=== PATIENT | male | born 1935 | race Hispanic/Latino ===

== ENCOUNTER 2020-05-20 06:48 | Observation (INO) | payer MEDICARE ==
--- NOTE | 2020-05-20 07:49 | Emergency Department Report ---
ED Altered Mental Status HPI - General Chief Complaint: Altered Mental Status Stated Complaint: ALTERED MENTAL STATUS Time Seen by Provider: 05/20/20 07:37 Source: EMS Mode of arrival: Stretcher Limitations: Altered Mental Status - History of Present Illness Initial Comments: 84-year-old male with a past medical history of CHF, hypertension, and diabetes presents to the hospital with alteration in mental status. Patient is apparently admitted to [facility] for overdose attempt and depression. He was last seen normal at 2 AM here post and nursing station requesting medication for pain. He apparently was provided Tylenol. This m orning he was found in his current state. Patient is unable to speak but able to nod and gesture. Triage nurse initially thought patient had left-sided weakness upon command but patient is witnessing gesturing with his left hand when not prompted. EMS Accu-Chek 110. code stroke initiated after my evaluation. - Related Data Home Medications Medication Instructions Recorded Confirmed Last Taken Benzocaine/Menthol [Sore Throat 1 each MM ONCE PRN 05/20/20 05/20/20 Unknown Lozenges] Insulin Regular, Human [Novolin R] 1 units IJ QHS 05/20/20 05/20/20 Unknown Isosorbide Dinitrate 30 mg PO BID 05/20/20 05/20/20 Unknown LORazepam [Lorazepam] 0.5 mg PO PRN PRN 05/20/20 05/20/20 Unknown Magnesium, Aluminum Hydroxide 30 ml PO ONCE PRN 05/20/20 05/20/20 Unknown [Mag-Al Liquid] Mupirocin [Bactroban 2%] 1 applic TP TID 05/20/20 05/20/20 Unknown Promethazine [Phenergan] 25 mg PO Q6HR PRN 05/20/20 05/20/20 Unknown Sertraline [Zoloft] 25 mg PO QDAY 05/20/20 05/20/20 Unknown Tamsulosin [Flomax] 0.4 mg PO QDAY 05/20/20 05/20/20 Unknown cloNIDine [Catapres] 0.1 mg PO DAILY 05/20/20 05/20/20 Unknown diphenhydrAMINE [Benadryl CAP] 25 mg PO Q8HR PRN 05/20/20 05/20/20 Unknown glyBURIDE [Diabeta] 5 mg PO BID 05/20/20 05/20/20 Unknown hydrOXYzine PAMOATE [Vistaril] 25 mg PO Q6HR PRN 05/20/20 05/20/20 Unknown traZODone [Desyrel] 25 mg PO QHS 05/20/20 05/20/20 Unknown Allergies Allergy/AdvReac Type Severity Reaction Status Date / Time aspirin AdvReac Unknown Verified 05/20/20 08:11 clopidogrel AdvReac Unknown Verified 05/20/20 08:11 codeine AdvReac Unknown Verified 05/20/20 08:11 doxycycline AdvReac Unknown Verified 05/20/20 08:11 hydrocodone AdvReac Unknown Verified 05/20/20 08:11 iodine AdvReac Unknown Verified 05/20/20 08:11 Penicillins AdvReac Unknown Verified 05/20/20 08:11 povidone-iodine AdvReac Unknown Verified 05/20/20 08:11 ticagrelor AdvReac Unknown Verified 05/20/20 08:11 ED Review of Systems ROS: Stated complaint: ALTERED MENTAL STATUS Other details as noted in HPI Comment: Unobtainable due to pts medical conditions ED Past Medical Hx - Social History Smoking Status: Unknown if ever smoked Substance Use Type: None - Medications Home Medications: Home Medications Medication Instructions Recorded Confirmed Last Taken Type Benzocaine/Menthol [Sore Throat 1 each MM ONCE PRN 05/20/20 05/20/20 Unknown History Lozenges] Insulin Regular, Human [Novolin R] 1 units IJ QHS 05/20/20 05/20/20 Unknown History Isosorbide Dinitrate 30 mg PO BID 05/20/20 05/20/20 Unknown History LORazepam [Lorazepam] 0.5 mg PO PRN PRN 05/20/20 05/20/20 Unknown History Magnesium, Aluminum Hydroxide 30 ml PO ONCE PRN 05/20/20 05/20/20 Unknown History [Mag-Al Liquid] Mupirocin [Bactroban 2%] 1 applic TP TID 05/20/20 05/20/20 Unknown History Promethazine [Phenergan] 25 mg PO Q6HR PRN 05/20/20 05/20/20 Unknown History Sertraline [Zoloft] 25 mg PO QDAY 05/20/20 05/20/20 Unknown History Tamsulosin [Flomax] 0.4 mg PO QDAY 05/20/20 05/20/20 Unknown History cloNIDine [Catapres] 0.1 mg PO DAILY 05/20/20 05/20/20 Unknown History diphenhydrAMINE [Benadryl CAP] 25 mg PO Q8HR PRN 05/20/20 05/20/20 Unknown History glyBURIDE [Diabeta] 5 mg PO BID 05/20/20 05/20/20 Unknown History hydrOXYzine PAMOATE [Vistaril] 25 mg PO Q6HR PRN 05/20/20 05/20/20 Unknown History traZODone [Desyrel] 25 mg PO QHS 05/20/20 05/20/20 Unknown History ED Physical Exam - General Limitations: Altered Mental Status - Other Other exam information: General: No acute distress Head: Atraumatic Eyes: normal appearance ENT: Moist mucous membranes Neck: Normal appearance, no midline tenderness Chest: Clear to auscultation bilaterally CV: Tachycardic regular rhythm, positive murmur Abdomen: Soft, normal bowel sounds, nontender, nondistended, no rebound or guarding Back: Normal inspection Extremity: Normal inspection, full range of motion Neuro: Awake Psych: Appropriate behavior Skin: No rash ED Course Vital Signs 05/20/20 05/20/20 05/20/20 07:20 07:25 08:20 Temperature 98.9 F 98.9 F Pulse Rate 119 H 114 H 101 H Respiratory 19 19 17 Rate Blood Pressure 219/106 Blood Pressure 197/94 197/96 [Left] O2 Sat by Pulse 97 97 98 Oximetry 05/20/20 05/20/20 05/20/20 09:15 10:15 11:30 Temperature Pulse Rate 119 H 115 H Respiratory 17 14 Rate Blood Pressure 179/86 158/84 177/88 Blood Pressure [Left] O2 Sat by Pulse 96 96 96 Oximetry 05/20/20 05/20/20 05/20/20 12:15 13:15 14:00 Temperature Pulse Rate Respiratory Rate Blood Pressure 179/81 167/91 184/91 Blood Pressure [Left] O2 Sat by Pulse 96 96 96 Oximetry - Reevaluation(s) Reevaluation #1: 05/20/20 08:58 Patient now is alert with stuttering speech and mild bilateral tremors but no focal weakness. Patient is on a 1013 from [place] for suicidal attempt via overdose. Patient is now not agreeing to have IV placed. Family is having a lot of holiness associations/delusions. Patient is refusing IV which is required admission. Reevaluation #2: 05/20/20 09:00 Upon reexamination patient is alert and oriented to year. When asked what place he is he states he is on [place]. Patient does not have any focal deficits and has 5/5 upper lower extremity strength with intact [id number] function, grossly intact sensation, mild tremor noted. No facial droop. Extraocular was intact with stuttering speech 05/20/20 09:19 PATIENT REFUSES ED TREATMENT INCLUDING IV AND IM MEDS. JORDYN WELCH STATES ADMINISTERING MEDS AGAINST PT'S WILL IS ASSAULT EVEN IF THE PT IS A 1013 EVEN IF PT CAME IN CATATONIC DUE TO SEVERE DEPRESSION WITH RECENT SUICIDE ATTEMPT. RISK MANAGEMENT HAS BEEN CONSULTED. ADMISSION ORDERS PLACED. - Lab Data Result diagrams: 05/20/20 07:56 05/20/20 07:56 Lab Results 05/20/20 05/20/20 05/20/20 Range/Units 07:56 07:56 07:56 WBC 5.4 (4.5-11.0) K/mm3 RBC 4.73 (3.65-5.03) M/mm3 Hgb 13.0 (11.8-15.2) gm/dl Hct 39.4 (35.5-45.6) % MCV 83 L (84-94) fl MCH 27 L (28-32) pg MCHC 33 (32-34) % RDW 17.0 H (13.2-15.2) % Plt Count 193 (140-440) K/mm3 Lymph % (Auto) 27.0 (13.4-35.0) % [facility] % (Auto) 6.3 (0.0-7.3) % Eos % (Auto) 4.5 H (0.0-4.3) % Baso % (Auto) 0.4 (0.0-1.8) % Lymph # 1.5 (1.2-5.4) K/mm3 [facility] # 0.3 (0.0-0.8) K/mm3 Eos # 0.2 (0.0-0.4) K/mm3 Baso # 0.0 (0.0-0.1) K/mm3 Seg Neutrophils % 61.8 (40.0-70.0) % Seg Neutrophils # 3.4 (1.8-7.7) K/mm3 Sodium 137 (137-145) mmol/L Potassium 3.8 (3.6-5.0) mmol/L Chloride 103.4 (98-107) mmol/L Carbon Dioxide 17 L (22-30) mmol/L Anion Gap 20 mmol/L BUN 16 (9-20) mg/dL Creatinine 0.7 L (0.8-1.3) mg/dL Estimated GFR > 60 ml/min BUN/Creatinine Ratio 23 % Glucose 147 H (75-100) mg/dL Calcium 9.5 (8.4-10.2) mg/dL Magnesium 2.00 (1.7-2.3) mg/dL Total Bilirubin 0.50 (0.1-1.2) mg/dL AST 31 (5-40) units/L ALT 22 (7-56) units/L Alkaline Phosphatase 86 (35-129) units/L Total Creatine Kinase 88 (55-170) units/L CK-MB (CK-2) 2.2 (0.0-4.0) ng/mL CK-MB (CK-2) Rel Index 2.5 (0-4) Troponin T < 0.010 (0.00-0.029) ng/mL Total Protein 8.2 (6.3-8.2) g/dL Albumin 3.8 L (3.9-5) g/dL Albumin/Globulin Ratio 0.9 % TSH (0.270-4.200) mlU/mL Free T4 (0.76-1.46) ng/dL Plasma/Serum Alcohol < 0.01 (0-0.07) % 05/20/20 Range/Units 07:56 WBC (4.5-11.0) K/mm3 RBC (3.65-5.03) M/mm3 Hgb (11.8-15.2) gm/dl Hct (35.5-45.6) % MCV (84-94) fl MCH (28-32) pg MCHC (32-34) % RDW (13.2-15.2) % Plt Count (140-440) K/mm3 Lymph % (Auto) (13.4-35.0) % [facility] [place] % (Auto) (0.0-7.3) % Eos % (Auto) (0.0-4.3) % Baso % (Auto) (0.0-1.8) % Lymph # (1.2-5.4) K/mm3 [facility] # (0.0-0.8) K/mm3 Eos # (0.0-0.4) K/mm3 Baso # (0.0-0.1) K/mm3 Seg Neutrophils % (40.0-70.0) % Seg Neutrophils # (1.8-7.7) K/mm3 Sodium (137-145) mmol/L Potassium (3.6-5.0) mmol/L Chloride (98-107) mmol/L Carbon Dioxide (22-30) mmol/L Anion Gap mmol/L BUN (9-20) mg/dL Creatinine (0.8-1.3) mg/dL Estimated GFR ml/min BUN/Creatinine Ratio % Glucose (75-100) mg/dL Calcium (8.4-10.2) mg/dL Magnesium (1.7-2.3) mg/dL Total Bilirubin (0.1-1.2) mg/dL AST (5-40) units/L ALT (7-56) units/L Alkaline Phosphatase (35-129) units/L Total Creatine Kinase (55-170) units/L CK-MB (CK-2) (0.0-4.0) ng/mL CK-MB (CK-2) Rel Index (0-4) Troponin T (0.00-0.029) ng/mL Total Protein (6.3-8.2) g/dL Albumin (3.9-5) g/dL Albumin/Globulin Ratio % TSH 0.390 (0.270-4.200) mlU/mL Free T4 1.28 (0.76-1.46) ng/dL Plasma/Serum Alcohol (0-0.07) % - Radiology Data Radiology results: report reviewed NONENHANCED CT SCAN OF THE BRAIN: INDICATION: Stroke symptoms. Change in mental status; last known well time 0200 hours on TECHNIQUE: Routine CT head without contrast. Sagittal and coronal reformatted images were obtained. All CT scans at this location are performed using CT dose reduction for ALARA by means of automated exposure control. COMPARISON: None. FINDINGS: BRAIN / INTRACRANIAL CONTENTS: Hemorrhage:No intracranial hemorrhage; no subarachnoid hemorrhage Stroke mimics: No subdural or epidural hematoma or space taking lesion Acute/subacute territorial infarction: Dejesus-white matter interface: No blurring; normal Insular cortex: Normal Basal ganglia: Normal Wedge shaped parenchymal low density area: Not present Cortical sulci: Not effaced Lacunar infarctions: None Vasculopathy: Dense middle cerebral artery sign: Not present Internal carotid artery terminus: Normal Basilar artery:Normal Middle cerebral artery branches in the sylvian fissure (Dot sign): Normal Calcified embolus: Not present ASPECT score: 10 Chronic lesions: Extensive periventricular low-attenuation areas seen. In addition, focal white matter lesions. These lesions probably due to chronic small vessel disease. Craniocervical junction:No significant abnormality Orbits:No significant abnormality Paranasal sinuses/mastoids:No significant abnormality Additional findings: Vascular calcification in the carotid arteries at the level of IMPRESSION: No intracerebral hemorrhage No stroke mimics No CT findings to suggest acute/subacute territorial infarction - Medical Decision Making Patient presented with possible stroke symptoms. I have instructed patient's presentation is more psych related due to severe depression with associated holiness delusions. CT head unremarkable. Unable to perform CT Julia of head and negative due to iodine allergy. Neurology consult appreciated. Given multiple stroke risk factors patient will be admitted to the hospital for continuation of neurologic work-up to rule out neurologic cause of symptoms. Patient is currently on a 1013 however I am unable to chemically sedate patient at this time since patient refuses. Unable to adequately medically treat the patient at this time due to patient refusal. Risk management has been consulted and admission orders have been placed at this time. Critical Care Time: No Critical care attestation.: If time is entered above; I have spent that time in minutes in the direct care of this critically ill patient, excluding procedure time. ED Disposition Clinical Impression: CVA (cerebrovascular accident), Depression, Suicidal ideations, Uncontrolled hypertension, Catatonia Disposition: OP ADMIT IP TO THIS HOSP Is pt being admited?: Yes Condition: Stable Time of Disposition: 09:09 (Dr Gillis/hosp)
--- NOTE | 2020-05-20 08:11 | Emergency Department Report ---
ED Altered Mental Status [facility] - General Chief Complaint: Altered Mental Status Stated Complaint: ALTERED MENTAL STATUS Time Seen by Provider: 05/20/20 07:37 Source: EMS Mode of arrival: Stretcher Limitations: Altered Mental Status ED Review of Systems ROS: Stated complaint: ALTERED MENTAL STATUS Other details as noted in HPI [facility] Date of Service: 05/20/2020 07:44:15 Impression: Rule Out Acute Ischemic Stroke Comments/Sign-Out: The patient needs to have stat CT angiogram of the head and neck and CT perfusion studies to rule out large vessel occlusion. The patient is not an alteplase candidate because the last known normal was outside the window. If the advanced neuroimaging is negative for large vessel occlusion then he needs to be admitted for brain MRI, carotids and echo as part of stroke workup. Mechanism of Stroke: Not Clear Metrics: Last Known Well: 05/20/2020 02:00:00 [employer] Notification Time: 05/20/2020 07:43:59 Arrival Time: 05/20/2020 07:00:00 Stamp Time: 05/20/2020 07:44:15 Time First Login Attempt: 05/20/2020 07:47:23 Video Start Time: 05/20/2020 07:47:23 Symptoms: left and then right sided weakness , aphasia NIHSS Start Assessment Time: 05/20/2020 07:55:33 Patient is not a candidate for Alteplase/Activase. Patient was not deemed candidate for Alteplase/Activase thrombolytics because of Last Well Known Above 4.5 Hours. Video End Time: 05/20/2020 08:01:19 CT head showed no acute hemorrhage or acute core infarct. Lower Likelihood of Large Vessel Occlusion but Following Stat Studies are Recommended CTA Head and Neck. CT Perfusion. ED Physician notified of diagnostic impression and management plan on 05/20/2020 08:01:20 Our recommendations are outlined below. Recommendations: Activate Stroke Protocol Admission/Order Set Stroke/Telemetry Floor Neuro Checks Bedside Swallow Eval DVT Prophylaxis IV Fluids, Normal Saline Head of Bed 30 Degrees Euglycemia and Avoid Hyperthermia (PRN Acetaminophen) Antiplatelet Therapy Recommended Sign Out: Discussed with Emergency Department Provider History of Present Illness: Patient is a 84 year old Male. Patient was brought by EMS for symptoms of left and then right sided weakness , aphasia 84 year old male from a mental health facility came in with altered awareness , aphasia and left sided weakness. He was admitted to the mental health facility Recently for drug overdose on 05/15/20. His other past medical history includes hypertension, diabetes, CHF and he is not on any antiplatelets on anticoagulant agents. He was last known normal at about 2 o'clock in the morning winning when she is the nurses station at the facility and asked for pain medications and got Tylenol. When they went to check on him this morning he was noted to have altered Mental status, aphasia and left-sided weakness. He was brought to the hospital by EMS for further evaluation. The patient is able to mouth the sentences but no words are coming. He is now exhibiting right-sided weakness. There is no facial asymmetry. Both his legs are weak. His CAT scan is negative for bleed. I will suggest stat CT angiogram and perfusion studies to rule out large vessel occlusion. Last seen normal was beyond 4.5 hours of presentation. There is no history of hemorrhagic complications or intracranial hemorrhage. There is no history of Recent Anticoagulants. There is no history of recent major surgery. There is no history of recent stroke. Past Medical History: Hypertension Diabetes Mellitus Anticoagulant use: No Antiplatelet use: No Examination: 1A: Level of Consciousness - Alert; keenly responsive + 0 1B: Ask Month and Age - Aphasic + 2 1C: Blink Eyes & Squeeze Hands - Performs 1 Task + 1 2: Test Horizontal Extraocular Movements - Normal + 0 3: Test Visual Doty - No Visual Loss + 0 4: Test Facial Palsy (Use Grimace if Obtunded) - Normal symmetry + 0 5A: Test Left Arm Motor Drift - No Drift for 10 Seconds + 0 5B: Test Right Arm Motor Drift - No Movement + 4 6A: Test Left Leg Motor Drift - No Movement + 4 6B: Test Right Leg Motor Drift - No Movement + 4 7: Test Limb Ataxia (FNF/Heel-Kearns) - No Ataxia + 0 8: Test Sensation - Normal; No sensory loss + 0 9: Test Language/Aphasia - Mute/Global Aphasia: No Usable Speech/Auditory Comprehension + 3 10: Test Dysarthria - Normal + 0 11: Test Extinction/Inattention - No abnormality + 0 NIHSS Score: 18 Patient/Family was informed the Neurology Consult would happen via TeleHealth consult by way of interactive audio and video telecommunications and consented to receiving care in this manner. Due to the immediate potential for life-threatening deterioration due to underlying acute neurologic illness, I spent 35 minutes providing critical care. This time includes time for face to face visit via telemedicine, review of medical records, imaging studies and discussion of findings with providers, the patient and/or family. Dr Misti Barros [employer] Case [id number] ED Past Medical Hx - Past Medical History Previous Medical History?: Yes Hx Hypertension: Yes Hx Congestive Heart Failure: Yes Hx Dementia: Yes - Social History Smoking Status: Unknown if ever smoked Substance Use Type: None ED Physical Exam - General Limitations: Altered Mental Status ED Course Vital Signs 05/20/20 05/20/20 07:20 07:25 Temperature 98.9 F 98.9 F Pulse Rate 119 H 114 H Respiratory 19 19 Rate Blood Pressure 219/106 Blood Pressure 197/94 [Left] O2 Sat by Pulse 97 97 Oximetry Critical care attestation.: If time is entered above; I have spent that time in minutes in the direct care of this critically ill patient, excluding procedure time. ED Disposition Clinical Impression: CVA (cerebrovascular accident) Disposition: [id number] OP ADMIT IP TO THIS HOSP Is pt being admited?: Yes Does the pt Need Aspirin: Yes Condition: Stable
--- NOTE | 2020-05-20 08:18 | Cat Scan Report ---
NONENHANCED CT SCAN OF THE BRAIN: INDICATION: Stroke symptoms. Change in mental status; last known well time 0200 hours on 05/19/2020 TECHNIQUE: Routine CT head without contrast. Sagittal and coronal reformatted images were obtained. A ll CT scans at this location are performed using CT dose reduction for ALARA by means of automated ex posure control. COMPARISON: None. FINDINGS: BRAIN / INTRACRANIAL CONTENTS: Hemorrhage:No intracranial hemorrhage; no subarachnoid hemorrhage Stroke mimics: No subdural or epidural hematoma or space taking lesion Acute/subacute territorial infarction: Dejesus-white matter interface: No blurring; normal Insular cortex: Normal Basal ganglia: Normal Wedge shaped parenchymal low density area: Not present Cortical sulci: Not effaced Lacunar infarctions: None Vasculopathy: Dense middle cerebral artery sign: Not present Internal carotid artery terminus: Normal Basilar artery:Normal Middle cerebral artery branches in the sylvian fissure (Dot sign): Normal Calcified embolus: Not present ASPECT score: 10 Chronic lesions: Extensive periventricular low-attenuation areas seen. In addition, focal white matte r lesions. These lesions probably due to chronic small vessel disease. Craniocervical junction:No significant abnormality Orbits:No significant abnormality Paranasal sinuses/mastoids:No significant abnormality Additional findings: Vascular calcification in the carotid arteries at the level of IMPRESSION: No intracerebral hemorrhage No stroke mimics No CT findings to suggest acute/subacute territorial infarction This exam was performed as part of a code stroke protocol. The exam was completed at [facility] on 05/20/2020 7:09 AM. The exam was reviewed at 7:13 AM Central daylight saving time and ER physician was notified at 7:14 AM. Signer Name: Javier Lama MD Signed: 05/20/2020 8:14 AM Workstation Name: [id number]
[2020-05-20 08:20] LABS: Basophils % (Auto) 0.4 % (0.0-1.8); Eosinophils # (Auto) 0.2 K/mm3 (0.0-0.4); Eosinophils % (Auto) 4.5 % (0.0-4.3); Hematocrit 39.4 % (35.5-45.6); Lymphocytes # (Auto) 1.5 K/mm3 (1.2-5.4); Mean Corpuscular HGB Conc 33 % (32-34); Mean Corpuscular Volume 83 fl (84-94); Monocytes # (Auto) 0.3 K/mm3 (0.0-0.8); Monocytes % (Auto) 6.3 % (0.0-7.3); Platelet Count 193 K/mm3 (140-440); Red Blood Count 4.73 M/mm3 (3.65-5.03)
--- NOTE | 2020-05-20 08:27 | XRay Report ---
CHEST 1 VIEW INDICATION: alteration in mental status. COMPARISON: None FINDINGS: Support devices: None. Heart: Within normal limits. Lungs/Pleura: No acute air space or interstitial disease. Additional findings: None. IMPRESSION: No acute findings. Signer Name: Raj Villalobos Jr, MD Signed: 05/20/2020 8:23 AM Workstation Name: [id number]
[2020-05-20 08:48] LABS: Alanine Aminotransferase 22 units/L (7-56); Albumin 3.8 g/dL (3.9-5); BUN/Creatinine Ratio 23; Blood Urea Nitrogen 16 mg/dL (9-20); Calcium 9.5 mg/dL (8.4-10.2); Creatine Kinase MB 2.2 ng/mL (0.0-4.0); Hemolysis Index 43
[2020-05-20 08:54] LABS: Free T4 (Free Thyroxine) 1.28 ng/dL (0.76-1.46)
[2020-05-20] MEDS ORDERED: ZIPRASIDONE MESYLATE 20 MG VIAL IM ONE (09:00)
[2020-05-20] MEDS ORDERED: LORazepam 2 MG/ML VIAL IM ONE (09:00)
--- NOTE | 2020-05-20 12:57 | History and Physical Report ---
History of Present Illness Date of examination: 05/20/20 Date of admission: 05/20/20 09:14 Chief complaint: Altered mental status History of present illness: Patient 84-year-old male with comorbid illness of congestive heart failure and secondary diagnoses of hypertension diabetes and dementia. Patient had an apparent attempt at suicide from overdose on antidepressant medications. Patient apparently was being worked up at mental health facility and had an epis ode of becoming nonverbal. Upon presentation here patient is alert oriented able to answer all questions. It appears that patient just did not speak and did not want to speak secondary to psychiatric issues. Initial presentation patient did not speak to me as well. After I spoke with him about life situations and his time is he grew up patient opened up and started talking to me about hoahaoism his parents his father his times in [place]. [facility] Patient lifted both arms and pray with me in [id number]. Patient stated he still feels down and wants to go home and pass in [place]. He feels the Lord is calling him home now. Stated he has been h ere on earth long enough and he is ready to see the Lord now. I did reach out to Mr. Tarun Dykes was the point of contact and left a message. No answer at this time. I also explained to the patient that he was dehydrated and anxious and required IV fluids. Patient still refused any IV fluids at any point of care at this particular time. Stated that he would drink fluids when he is ready. Explained to patient that his blood pressure was high and his pulse was high and he was anxious and would benefit from taking his blood pressure medications and receiving IV fluids. Past History Past Medical History: heart failure, hypertension Past Surgical History: No surgical history Social history: single, lives with family, other (Could not address DNR status.). denies: smoking, alcohol abuse, IV drug use Family history: other (Unknown at this time.) Medications and Allergies Allergies Allergy/AdvReac Type Severity Reaction Status Date / Time aspirin AdvReac Unknown Verified 05/20/20 08:11 clopidogrel AdvReac Unknown Verified 05/20/20 08:11 codeine AdvReac Unknown Verified 05/20/20 08:11 doxycycline AdvReac Unknown Verified 05/20/20 08:11 hydrocodone AdvReac Unknown Verified 05/20/20 08:11 iodine AdvReac Unknown Verified 05/20/20 08:11 Penicillins AdvReac Unknown Verified 05/20/20 08:11 povidone-iodine AdvReac Unknown Verified 05/20/20 08:11 ticagrelor AdvReac Unknown Verified 05/20/20 08:11 Home Medications Medication Instructions Recorded Confirmed Last Taken Type Benzocaine/Menthol [Sore Throat 1 each MM ONCE PRN 05/20/20 05/20/20 Unknown History Lozenges] Insulin Regular, Human [Novolin R] 1 units IJ QHS 05/20/20 05/20/20 Unknown History Isosorbide Dinitrate 30 mg PO BID 05/20/20 05/20/20 Unknown History LORazepam [Lorazepam] 0.5 mg PO PRN PRN 05/20/20 05/20/20 Unknown History Magnesium, Aluminum Hydroxide 30 ml PO ONCE PRN 05/20/20 05/20/20 Unknown History [Mag-Al Liquid] Mupirocin [Bactroban 2%] 1 applic TP TID 05/20/20 05/20/20 Unknown History Promethazine [Phenergan] 25 mg PO Q6HR PRN 05/20/20 05/20/20 Unknown History Sertraline [Zoloft] 25 mg PO QDAY 05/20/20 05/20/20 Unknown History Tamsulosin [Flomax] 0.4 mg PO QDAY 05/20/20 05/20/20 Unknown History cloNIDine [Catapres] 0.1 mg PO DAILY 05/20/20 05/20/20 Unknown History diphenhydrAMINE [Benadryl CAP] 25 mg PO Q8HR PRN 05/20/20 05/20/20 Unknown Hist ory glyBURIDE [Diabeta] 5 mg PO BID 05/20/20 05/20/20 Unknown History hydrOXYzine PAMOATE [Vistaril] 25 mg PO Q6HR PRN 05/20/20 05/20/20 Unknown History traZODone [Desyrel] 25 mg PO QHS 05/20/20 05/20/20 Unknown History Review of Systems Constitutional: fatigue, no weight loss, no weight gain, no fever, no chills, no sweats, no anorexia Ears, nose, mouth and throat: no ear pain, no tinnitis, no decreased hearing, no nose pain, no dental pain, no mouth pain, no sore throat Cardiovascular: no chest pain, no orthopnea, no palpitations, no rapid/irregular heart beat, no edema, no shortness of breath, no dyspnea on exertion Respiratory: no cough, no cough with sputum Gastrointestinal: no diarrhea, no constipation Genitourinary Male: no urinary hesitancy Musculoskeletal: no neck pain, no arm numbness/tingling, no muscle weakness, no muscle cramps, no prior amputations Neurological: no weakness, no tingling, no migraines, no aphasia, no confusion, no motor disturbance, no hearing difficulties (Patient mostly just shakes head no for everything at this time.) Exam - Constitutional Vitals: Temp Pulse Resp BP Pulse Ox 98.9 F 115 H 14 179/81 96 05/20/20 07:25 05/20/20 10:15 05/20/20 10:15 05/20/20 12:15 05/20/20 12:15 General appearance: Present: no acute distress, well-nourished - EENT Eyes: Present: PERRL ENT: hearing intact, clear oral mucosa - Neck Neck: Present: supple, normal ROM, other (Oral mucosa somewhat dry) - Respiratory Respiratory effort: normal Respiratory: bilateral: CTA - Cardiovascular Rhythm: other (Tachycardic) Heart Sounds: Present: S1 & S2. Absent: rub, click - Extremities Extremities: pulses symmetrical, No edema Peripheral Pulses: within normal limits - Abdominal General gastrointestinal: Present: soft, non-tender, non-distended, normal bowel sounds Male genitourinary: Present: normal - Rectal Rectal Exam: other (Skin tear left arm just below antecubital fossa) - Integumentary Integumentary: Present: clear, warm, dry - Musculoskeletal Musculoskeletal: gait normal, strength equal bilaterally - Psychiatric Psychiatric: appropriate mood/affect, intact judgment & insight, other (Some tremors with arm extension.) - Neurologic Neurologic: CNII-XII intact, moves all extremities HEART Score - HEART Score Troponin: Troponin T < 0.010 ng/mL (0.00-0.029) 05/20/20 07:56 Results - Labs CBC & Chem 7: 05/20/20 07:56 05/20/20 07:56 Labs: Laboratory Last Values WBC 5.4 K/mm3 (4.5-11.0) 05/20/20 07:56 RBC 4.73 M/mm3 (3.65-5.03) 05/20/20 07:56 Hgb 13.0 gm/dl (11.8-15.2) 05/20/20 07:56 Hct 39.4 % (35.5-45.6) 05/20/20 07:56 MCV 83 fl (84-94) L 05/20/20 07:56 MCH 27 pg (28-32) L 05/20/20 07:56 MCHC 33 % (32-34) 05/20/20 07:56 RDW 17.0 % (13.2-15.2) H 05/20/20 07:56 Plt Count 193 K/mm3 (140-440) 05/20/20 07:56 Lymph % (Auto) 27.0 % (13.4-35.0) 05/20/20 07:56 Garza % (Auto) 6.3 % (0.0-7.3) 05/20/20 07:56 Eos % (Auto) 4.5 % (0.0-4.3) H 05/20/20 07:56 Baso % (Auto) 0.4 % (0.0-1.8) 05/20/20 07:56 Lymph # 1.5 K/mm3 (1.2-5.4) 05/20/20 07:56 Garza # 0.3 K/mm3 (0.0-0.8) 05/20/20 07:56 Eos # 0.2 K/mm3 (0.0-0.4) 05/20/20 07:56 Baso # 0.0 K/mm3 (0.0-0.1) 05/20/20 07:56 Seg Neutrophils % 61.8 % (40.0-70.0) 05/20/20 07:56 Seg Neutrophils # 3.4 K/mm3 (1.8-7.7) 05/20/20 07:56 Sodium 137 mmol/L (137-145) 05/20/20 07:56 Potassium 3.8 mmol/L (3.6-5.0) 05/20/20 07:56 Chloride 103.4 mmol/L (98-107) 05/20/20 07:56 Carbon Dioxide 17 mmol/L (22-30) L 05/20/20 07:56 Anion Gap 20 mmol/L 05/20/20 07:56 BUN 16 mg/dL (9-20) 05/20/20 07:56 Creatinine 0.7 mg/dL (0.8-1.3) L 05/20/20 07:56 Estimated GFR > 60 ml/min 05/20/20 07:56 BUN/Creatinine Ratio 23 % 05/20/20 07:56 Glucose 147 mg/dL (75-100) H 05/20/20 07:56 Calcium 9.5 mg/dL (8.4-10.2) 05/20/20 07:56 Magnesium 2.00 mg/dL (1.7-2.3) 05/20/20 07:56 Total Bilirubin 0.50 mg/dL (0.1-1.2) 05/20/20 07:56 AST 31 units/L (5-40) 05/20/20 07:56 ALT 22 units/L (7-56) 05/20/20 07:56 Alkaline Phosphatase 86 units/L (35-129) 05/20/20 07:56 Total Creatine Kinase 88 units/L (55-170) 05/20/20 07:56 CK-MB (CK-2) 2.2 ng/mL (0.0-4.0) 05/20/20 07:56 CK-MB (CK-2) Rel Index 2.5 (0-4) 05/20/20 07:56 Troponin T < 0.010 ng/mL (0.00-0.029) 05/20/20 07:56 Total Protein 8.2 g/dL (6.3-8.2) 05/20/20 07:56 Albumin 3.8 g/dL (3.9-5) L 05/20/20 07:56 Albumin/Globulin Ratio 0.9 % 05/20/20 07:56 TSH 0.390 mlU/mL (0.270-4.200) 05/20/20 07:56 Free T4 1.28 ng/dL (0.76-1.46) 05/20/20 07:56 Plasma/Serum Alcohol < 0.01 % (0-0.07) 05/20/20 07:56 - Imaging and Cardiology CT Scan - head: image reviewed Assessment and Plan Advance Directives: No (Unable to appreciate secondary to dementia. Has not been able to contact f) VTE prophylaxis?: Chemical Plan of care discussed with patient/family: No - Patient Problems (1) Catatonia Current Visit: Yes Status: Acute Plan to address problem: CVA was ruled out. Patient also was no longer catatonic as explained in previous history and physical and also physical signs during physical exam. Appears to be more depression and dementia with mood disorder. (2) Depression Current Visit: Yes Status: Acute Plan to address problem: Patient does appear to be somewhat depressed with flat mood at times. It would become more upbeat when patient is able to talk about hoahaoism. Will await mental health recommendations. Not much really to add at this time patient was started on antidepressant. (3) Suicidal ideations Current Visit: Yes Status: Acute Plan to address problem: Mental health evaluation. Initiate antidepressant medication. Will most likely need inpatient if family decides to be more aggressive with his depression. (4) Uncontrolled hypertension Current Visit: Yes Status: Acute Plan to address problem: Uncontrolled hypertension patient continues to refuse medications. We will add a as needed hydralazine just in case patient will take a medicine IV without swallowing a pill. Patient continues to refuse care. (5) CVA (cerebrovascular accident) Current Visit: Yes Status: Acute Plan to address problem: Patient ruled out for CVA. Does not have any focal neurologic deficits. Patient does appear to have a declining cognition. At present he is alert able to speak about the past. No new immediate concerns. Would would not need MRI of further neurologic testing. (6) Dementia Current Visit: Yes Status: Acute Plan to address problem: Present appears to have dementia with mood disorder. I think treating patient's depression more aggressively may be the way to go. We will still need to speak with the family have not been able to get in touch with him at this point. Attempted to call Tarun Dykes x2. We will follow-up with additional conversation this evening.
[2020-05-20] MEDS ORDERED: ONDANSETRON 4 MG/2 ML INJ IV PRN (13:12)
[2020-05-20] MEDS ORDERED: ACETAMINOPHEN 325 MG TAB PO PRN (13:12)
[2020-05-20] MEDS ORDERED: HYDROcodone/ACETAMINOPHEN 5-325 MG TAB PO PRN (13:12)
[2020-05-20] MEDS ORDERED: LORazepam 0.5 MG TAB PO PRN (13:15)
[2020-05-20] MEDS ORDERED: hydrOXYzine PAMOATE 25 MG CAP PO PRN (13:15)
[2020-05-20] MEDS ORDERED: ISOSORBIDE DINITRATE 30 MG PO SCH (13:15)
[2020-05-20] MEDS ORDERED: PROMETHAZINE 25 MG TAB PO PRN (13:15)
[2020-05-20] MEDS ORDERED: hydrALAZINE 20 MG/1 ML INJ IV PRN (13:19)
[2020-05-20] MEDS ORDERED: cloNIDine 0.1 MG TAB PO SCH (14:00)
[2020-05-20] MEDS: MUPIROCIN 2% OINT 22 GM TP SCH ×2 (14:12→22:00)
[2020-05-20] MEDS: SERTRALINE 25 MG TAB PO SCH (14:13)
[2020-05-20 19:38] LABS: Bilirubin,Urine NEG (Negative); Blood,Urine SM (Negative); Color,Urine Straw (Yellow); RBC,Urine < 1.0 /HPF (0.0-6.0); Urobilinogen,Urine < 2.0 mg/dL (<2.0); WBC,Urine < 1.0 /HPF (0.0-6.0)
[2020-05-20 19:45] LABS: Amphetamine Screen,Urine PRESUMPTIVE NEGATIVE; Benzodiazepines Screen,Urine PRESUMPTIVE NEGATIVE; Cannabinoid Screen,Urine PRESUMPTIVE NEGATIVE; Cocaine Screen,Urine PRESUMPTIVE NEGATIVE; Methadone Screen,Urine PRESUMPTIVE NEGATIVE; Opiate Screen,Urine PRESUMPTIVE NEGATIVE
[2020-05-20] MEDS ORDERED: traZODone 50 MG TAB PO SCH (22:00)
[2020-05-20] MEDS: VALSARTAN 160MG TAB PO SCH (22:00)
[2020-05-20] MEDS: cloNIDine 0.2 MG TAB PO SCH (22:02)
[2020-05-20] MEDS: carvediloL 12.5 MG TAB PO SCH (22:02)
[2020-05-20] MEDS: ISOSORBIDE DINITRATE 10 MG TAB PO SCH (22:02)
[2020-05-20] MEDS: FAMOTIDINE 20 MG/2 ML INJ IV SCH (22:06)
[2020-05-20] MEDS ORDERED: FAMOTIDINE 20 MG/2 ML INJ IV ONE (22:06)
[2020-05-21 03:04] LABS: INR 0.98 (0.87-1.13)
[2020-05-21 03:05] LABS: Partial Thromboplastin Time 28.8 Sec. (24.2-36.6)
[2020-05-21 03:12] LABS: Blood Urea Nitrogen 13 mg/dL (9-20); Calcium 9.7 mg/dL (8.4-10.2); Hemolysis Index 43
[2020-05-21 03:31] LABS: BUN/Creatinine Ratio 19
[2020-05-21] MEDS: cloNIDine 0.2 MG TAB PO SCH ×2 (06:41→17:02)
[2020-05-21] MEDS ORDERED: TAMSULOSIN 0.4 MG CAP PO SCH (10:00)
[2020-05-21] MEDS ORDERED: ENOXAPARIN 40 MG/0.4 ML INJ SUB-Q SCH (10:00)
[2020-05-21] MEDS: VALSARTAN 160MG TAB PO SCH (11:46)
[2020-05-21] MEDS: ISOSORBIDE DINITRATE 10 MG TAB PO SCH (11:46)
[2020-05-21] MEDS: carvediloL 12.5 MG TAB PO SCH (11:46)
[2020-05-21] MEDS: FAMOTIDINE 20 MG/2 ML INJ IV SCH (11:47)
[2020-05-21] MEDS: SERTRALINE 25 MG TAB PO SCH (11:48)
--- NOTE | 2020-05-21 12:58 | Consultation ---
History of Present Illness - Reason for Consult Consult date: 05/21/20 Reason for consult: Depression, OD - History of Present Psychiatric Illness The patient's medical record was reviewed and the patient's progress was discussed with the nursing staff. The nurse note states I asked the patient if he would like for us to contact his nephew, he shook his head no, asked if he wanted up to let Tarun know his status he shook his head no, told him that he could speak with Tarun and he stated "I'd rather ." Nurse note also states the patient is refusing to eat. Kelechi Kelly is an 84y/o male who was admitted from [facility]. It is documented that the patient had a suicide attempt by overdose of psychiatric medications. During my interview with the patient is awake in bed. He is pleasantly confused. He is conversational. The patient is calm and cooperative. He describes his mood as "depressed." The patient states "I've been to several hospitals in the past two weeks." He then says, "the once before here was once with a bunch of craze people." When asking the patient why was he there, he states, "I messed around and said I would jump off the 4th floor. He says I was mad and knew that would make them listen." He denies being suicidal thoughts, but states, "I don't want to , but I'm going to . There is not a cure with what's wrong with me." He says "I got a deteriorated muscle in my heart." He then says, "I'm ready to see my family in [facility] anyway." The patient denies hallucinations of any kind. He states, "I talk to that man upstairs." The p atient denies any illicit drug use, alcohol, or nicotine. He could not recall any of his medications or psychiatric history. He says but he sees a psychiatrist "in [place]." PAST PSYCHIATRIC HISTORY Diagnoses: unable to recall Suicide attempts or Self-harm behavior: denies Prior psychiatric hospitalizations: Once Substance Abuse history: Denies Previous psychiatric medications tried: Unable to recall Outpatient treatment: Yes PAST MEDICAL HISTORY: Denies Family Psychiatric History: None reported or documented SOCIAL HISTORY Marital Status: Living Arrangements: with family Employment Status: Retired Access to guns/weapons: Denies Education: History of Abuse: none reported Legal History: none reported REVIEW OF SYSTEMS Constitutional: Negative for weight loss ENT: Negative for stridor Respiratory: Negative for cough or hemoptysis All other systems reviewed and are negative MENTAL STATUS EXAMINATION General Appearance: Dressed appropriately Behavior: Calm, cooperative, pleasant Mood: Depressed Affect and affective range: Congruent with stated mood Thought Process: Goal directed Thought Content: none Speech: Normal volume, Regular rate and rhythm Suicidal Ideation: Passive Homicidal Ideation: Denies Hallucinations: Denies Delusions: None elicited Insight and Judgment: Limited Memory/Cognition: Limited Attention: Normal Orientation: Alert, oriented Assessment Major Depressive Disorder PLAN Continue current medications Sitter: Defer to primary Medical: Per primary Disposition: Recommend acute inpatient psychiatric treatment. Will continue to follow. Thank you for this consult. Medications and Allergies Allergies Allergy/AdvReac Type Severity Reaction Status Date / Time aspirin AdvReac Unknown Verified 05/20/20 08:11 clopidogrel AdvReac Unknown Verified 05/20/20 08:11 codeine AdvReac Unknown Verified 05/20/20 08:11 doxycycline AdvReac Unknown Verified 05/20/20 08:11 hydrocodone AdvReac Unknown Verified 05/20/20 08:11 iodine AdvReac Unknown Verified 05/20/20 08:11 Penicillins AdvReac Unknown Verified 05/20/20 08:11 povidone-iodine AdvReac Unknown Verified 05/20/20 08:11 ticagrelor AdvReac Unknown Verified 05/20/20 08:11 Home Medications Medication Instructions Recorded Confirmed Last Taken Type Benzocaine/Menthol [Sore Throat 1 each MM ONCE PRN 05/20/20 05/20/20 Unknown History Lozenges] Insulin Regular, Human [Novolin R] 1 units IJ QHS 05/20/20 05/20/20 Unknown History Isosorbide Dinitrate 30 mg PO BID 05/20/20 05/20/20 Unknown History LORazepam [Lorazepam] 0.5 mg PO PRN PRN 05/20/20 05/20/20 Unknown History Magnesium, Aluminum Hydroxide 30 ml PO ONCE PRN 05/20/20 05/20/20 Unknown History [Mag-Al Liquid] Mupirocin [Bactroban 2%] 1 applic TP TID 05/20/20 05/20/20 Unknown History Promethazine [Phenergan] 25 mg PO Q6HR PRN 05/20/20 05/20/20 Unknown History Sertraline [Zoloft] 25 mg PO QDAY 05/20/20 05/20/20 Unknown History Tamsulosin [Flomax] 0.4 mg PO QDAY 05/20/20 05/20/20 Unknown History cloNIDine [Catapres] 0.1 mg PO DAILY 05/20/20 05/20/20 Unknown History diphenhydrAMINE [Benadryl CAP] 25 mg PO Q8HR PRN 05/20/20 05/20/20 Unknown History glyBURIDE [Diabeta] 5 mg PO BID 05/20/20 05/20/20 Unknown History hydrOXYzine PAMOATE [Vistaril] 25 mg PO Q6HR PRN 05/20/20 05/20/20 Unknown History traZODone [Desyrel] 25 mg PO QHS 05/20/20 05/20/20 Unknown History Active Meds: Active Medications Acetaminophen (Tylenol) 650 mg PO Q4H PRN PRN Reason: Pain MILD(1-3)/Fever >100.5/ALEJANDRO Acetaminophen/Hydrocodone Bitart ([place] 5/325) 2 each PO Q6H PRN PRN Reason: Pain, Moderate (4-6) Carvedilol (Coreg) 12.5 mg PO BID [facility] Last Admin: 05/21/20 11:46 Dose: Not Given Documented by: Clonidine HCl (Catapres) 0.2 mg PO Q8HR [facility] Last Admin: 05/21/20 06:41 Dose: 0.2 mg Documented by: Enoxaparin Sodium (Enoxaparin) 40 mg SUB-Q QDAY [facility] Last Admin: 05/21/20 11:48 Dose: Not Given Documented by: Famotidine (Pepcid) 20 mg IV BID [facility] Last Admin: 05/21/20 11:47 Dose: Not Given Documented by: Hydralazine HCl (Apresoline) 10 mg IV Q4HR PRN PRN Reason: Hypertension Hydroxyzine Pamoate (Vistaril) 25 mg PO Q6HR PRN PRN Reason: Anxiety Insulin Human Regular (Humulin R) 0 unit SUB-Q [facility]; Protocol Isosorbide Dinitrate (Isordil) 30 mg PO BID [facility] Last Admin: 05/21/20 11:46 Dose: Not Given Documented by: Labetalol HCl (Labetalol) 10 mg IV Q3H PRN PRN Reason: Blood Pressure Last Admin: 05/21/20 01:25 Dose: 10 mg Documented by: Lorazepam (Ativan) 0.5 mg PO PRN PRN PRN Reason: Agitation Mupirocin (Bactroban 2%) 1 applic TP TID [facility] Last Admin: 05/20/20 22:00 Dose: Not Given Documented by: Ondansetron HCl (Zofran) 4 mg IV Q8H PRN PRN Reason: Nausea And Vomiting Promethazine HCl (Phenergan) 25 mg PO Q6HR PRN PRN Reason: Nausea Sertraline HCl (Zoloft) 25 mg PO QDAY [facility] Last Admin: 05/21/20 11:48 Dose: 25 mg Documented by: Sodium Chloride (Sodium Chloride Flush Syringe 10 Ml) 10 ml IV BID [facility] Last Admin: 05/21/20 11:48 Dose: Not Given Documented by: Sodium Chloride (Sodium Chloride Flush Syringe 10 Ml) 10 ml IV PRN PRN PRN Reason: LINE FLUSH Tamsulosin HCl (Flomax) 0.4 mg PO QDAY [facility] Last Admin: 05/21/20 11:47 Dose: 0.4 mg Documented by: Trazodone HCl (Desyrel) 25 mg PO QHS [facility] Last Admin: 05/20/20 22:02 Dose: Not Given Documented by: Valsartan (Diovan) 160 mg PO Q12HR [facility] Last Admin: 05/21/20 11:46 Dose: Not Given Documented by: Mental Status Exam - Vital signs Last Vital Signs Temp 98.1 F 05/21/20 11:44 Pulse 93 H 05/21/20 11:44 Resp 18 05/21/20 11:44 BP 118/60 05/21/20 11:46 Pulse Ox 96 05/21/20 11:44 Results Result Diagrams: 05/20/20 07:56 05/21/20 02:11 Abnormal lab results 05/20/20 05/21/20 05/21/20 Range/Units 16:16 00:56 02:11 Sodium 135 L (137-145) mmol/L Chloride 97.2 L (98-107) mmol/L Carbon Dioxide 21 L (22-30) mmol/L Creatinine 0.7 L (0.8-1.3) mg/dL Glucose 238 H (75-100) mg/dL POC Glucose 175 H 229 H (70-105) 05/21/20 Range/Units 07:57 Sodium (137-145) mmol/L Chloride (98-107) mmol/L Carbon Dioxide (22-30) mmol/L Creatinine (0.8-1.3) mg/dL Glucose (75-100) mg/dL POC Glucose 169 H (70-105) All other labs normal.
--- NOTE | 2020-05-21 13:07 | Discharge Summary ---
Providers - Providers Date of Admission: 05/20/20 09:14 Date of discharge: 05/21/20 Attending physician: RODNEY GARCIA 05/20/20 12:26 Consult to Mental Health [CONS] Stat Reason For Exam: 1013 status at [place] Primary care physician: Patient today is alert eating willing to take medications. Asking for his blood pressure medications now. Patient was ruled out for CVA ruled out for pneumonia. Patient is not dehydrated. Patient is conversational confused with depressed mood. No medical factors keeping patient to remain hospitalized. Patient does not require restraints as not requiring to 1013. Stable for transfer back to [place]. Hospitalization Condition: Stable Hospital course: CT scan head unremarkable. Only chronic periventricular white matter disease. Small vessel disease consistent with patient's dementia as well. Patient was evaluated for CVA has resolved. Patient had brief episode of where he was not speaking call catatonic. Patient now eating. Did have a time where he was depressed refusing to take blood pressure medicines. Patient is taking medicines now states he wanted to remain well. Stable for transfer back to [facility]. Disposition: [id number] PSY HOSP/PSY UNIT - Discharge Diagnoses (1) Catatonia Status: Acute (2) Depression Status: Acute (3) Suicidal ideations Status: Acute (4) Uncontrolled hypertension Status: Acute (5) CVA (cerebrovascular accident) Status: Acute (6) Dementia Status: Acute Core Measure Documentation - Palliative Care Palliative Care/ Comfort Measures: Not Applicable - Core Measures Any of the following diagnoses?: none Exam - Constitutional Vitals: Temp Pulse Resp BP Pulse Ox 98.1 F 93 H 18 118/60 96 05/21/20 11:44 05/21/20 11:44 05/21/20 11:44 05/21/20 11:46 05/21/20 11:44 General appearance: Present: no acute distress, well-nourished - EENT Eyes: Present: PERRL ENT: hearing intact, clear oral mucosa - Neck Neck: Present: supple, normal ROM - Respiratory Respiratory effort: normal Respiratory: bilateral: CTA - Cardiovascular Heart Sounds: Present: S1 & S2. Absent: rub, click - Extremities Extremities: pulses symmetrical, No edema Peripheral Pulses: within normal limits - Abdominal General gastrointestinal: Present: soft, non-tender, non-distended, normal bowel sounds Male genitourinary: Present: normal - Integumentary Integumentary: Present: clear, warm, dry - Musculoskeletal Musculoskeletal: gait normal, strength equal bilaterally - Psychiatric Psychiatric: appropriate mood/affect, depressed, other (Poor cognition judgment questionable but has some insight into his disease state.) - Neurologic Neurologic: CNII-XII intact, moves all extremities, other (Poor cognition depressed mood.) Plan Activity: up only with assistance Weight Bearing Status: Weight Bear as Tolerated Diet: low cholesterol Follow up with: GILDARDO WILD MD [Staff Physician] - 3-5 Days Prescriptions: cloNIDine [Catapres] 0.1 mg PO DAILY #30 carvediloL [Coreg] 12.5 mg PO BID #60 tablet Valsartan [Diovan] 160 mg PO Q12HR #30 tablet Isosorbide Dinitrate [Isordil] 30 mg PO BID #30 tablet HYDROcodone/APAP 5-325 [[place] 5-325 mg TAB] 2 each PO Q6H PRN #20 tablet PRN Reason: Pain, Moderate (4-6) hydrOXYzine PAMOATE [Vistaril] 25 mg PO Q6HR PRN #30 cap PRN Reason: Anxiety
[2020-05-21 15:53] VITALS: BP 119/59
[2020-05-21] MEDS: INSULIN REGULAR, HUMAN 100 UNIT/ML 3ML VIAL SUB-Q SCH ×3 (16:45→16:59)
[2020-05-21] MEDS: MUPIROCIN 2% OINT 22 GM TP SCH (17:02)
== END 2020-05-21 17:00 ==
LOC: ED 06:48 → 4A 09:14 → 3A 13:27
PROVIDERS: ADMIT Internal Medicine; ATTEND Internal Medicine
DX: I63.9 Cerebral infarction, unspecified (principal); F06.1 Catatonic disorder due to known physiological condition; I11.0 Hypertensive heart disease with heart failure; I50.9 Heart failure, unspecified; R45.851 Suicidal ideations; R29.718 NIHSS score 18; F32.9 Major depressive disorder, single episode, unspecified; Z79.4 Long term (current) use of insulin
CPT/HCPCS: 36415; 70450; 71045; 80048; 80053; 80307; 81001; 82550; 82553; 82962; 83735; 84439; 84443; 84484; 85025; 85610; 85670; 85730; 96374; 96375; 96376; 99291; G0378; 80320; G0480; J1815